=== PATIENT | male | born 1945 | race Caucasian/White ===

== ENCOUNTER → 2016-10-21 | Outpatient (CLI) | payer BC ==
[~2016-10-21] MED LIST: ASCA500 PO; ASPCH81X PO; ATOR-24 PO; B-COCAP2 PO; CAND1TAB17 PO; CINN1CAP2 PO; CLOP1TAB15 PO; DILT-119 PO; MULT-506 PO; NTRGSL/4 UT; OMEG10007 PO; PRLSR20 PO; SPRIN/30 INH; VITA400C15 PO; VTMD1000 PO
[2016-10-21 12:16] LABS: BASO % 0.4 %; BASO ABS # 0.03 K/uL (0-0.2); COMPLETE YES; HEMATOCRIT 42.4 % (42-52); IG% 0.1 %; LYMPH % 24.1 %; LYMPH ABS # 1.65 K/uL (1.2-3.4); MEAN CELL VOLUME 86.5 fL (80-100); MEAN CORPUSCULAR HEMOGLOBIN 29.6 pg (25-34); MEAN CORPUSCULAR HGB CONC 34.2 g/dl (32-36); MEAN PLATELET VOLUME 10.6 fL (7.4-10.4); MONO % 12.4 %; PLATELET COUNT 210 K/uL (130-400); WHITE BLOOD COUNT 6.85 K/uL (4.8-10.8)
[2016-10-21 12:56] LABS: ALT/SGPT 34 U/L (12-78); AST/SGOT 22 U/L (15-37); BLOOD UREA NITROGEN 18 mg/dl (7-18); BUN/CREATININE RATIO 18.5 (10-20); CALCIUM 8.8 mg/dl (8.5-10.1); CARBON DIOXIDE 27 mmol/L (21-32); CHLORIDE 109 mmol/L (98-107); CREATININE 0.95 mg/dl (0.60-1.40); GLUCOSE 118 mg/dl (70-99); MAGNESIUM 2.1 mg/dl (1.8-2.4); SODIUM 143 mmol/L (136-145)
[2016-10-21 12:58] LABS: ALB/GLOB RATIO 1.1 (0.9-2); ALKALINE PHOSPHATASE 83 U/L (45-117)
== END | disposition home or self-care (01) ==
LOC: C.LABPVFM 08:30
PROVIDERS: ATTEND Family Medicine
DX: K21.0 Gastro-esophageal reflux disease with esophagitis (principal); E78.5 Hyperlipidemia, unspecified; J43.9 Emphysema, unspecified; I25.10 Atherosclerotic heart disease of native coronary artery without angina pectoris

== ENCOUNTER → 2017-04-02 | Outpatient (CLI) | payer BC ==
[2017-04-02 13:16] LABS: BLOOD UREA NITROGEN 22 mg/dl (7-18); CREATININE 0.98 mg/dl (0.60-1.40)
[2017-04-02 13:19] LABS: CHOLESTEROL/HDL RATIO 3.2
[2017-04-02 13:20] LABS: PROSTATE SPECIFIC ANTIGEN 0.148 ng/ml (0.000-4.000)
[2017-04-02 13:32] LABS: ESTIMATED AVERAGE GLUCOSE 117 mg/dl; HA1C FLAG Normal (Normal)
== END | disposition home or self-care (01) ==
LOC: C.LABPVFM 08:12
PROVIDERS: ATTEND Family Medicine
DX: K21.0 Gastro-esophageal reflux disease with esophagitis (principal); E78.5 Hyperlipidemia, unspecified; R73.01 Impaired fasting glucose; J43.9 Emphysema, unspecified; I25.10 Atherosclerotic heart disease of native coronary artery without angina pectoris; N40.0 Benign prostatic hyperplasia without lower urinary tract symptoms; Z12.5 Encounter for screening for malignant neoplasm of prostate; N41.9 Inflammatory disease of prostate, unspecified; N39.0 Urinary tract infection, site not specified

== ENCOUNTER → 2017-07-21 | Outpatient (CLI) | payer BC ==
--- NOTE | 2017-07-21 15:03 | DIAGNOSTIC IMAGING REPORT ---
KUB CLINICAL HISTORY: 71 years-old Male presenting with Abdominal pain, RUQ (right upper quadrant). TECHNIQUE: Single supine view of the abdomen was obtained. COMPARISON: CT from 02/21/2016. FINDINGS: Moderate stool burden in the right and transverse colon. No bowel obstruction. No gross pneumoperitoneum allowing for supine technique. Allowing for bowel gas and stool, no calcifications to suggest nephrolithiasis. Osseous structures normal. Lung bases clear. IMPRESSION: 1. Moderate stool burden suggest constipation. No bowel obstruction or gross free air. Electronically signed by: Kris Conner M.D. 07/21/2017 3:01 PM Dictated Date/Time: 07/21/2017 3:00 PM
--- NOTE | 2017-07-21 15:03 | DIAGNOSTIC IMAGING REPORT ---
RIBS UNILATERAL WITH PA CHEST CLINICAL HISTORY: Rib pain on right side trauma. Pain. COMPARISON STUDY: None FINDINGS: Nondisplaced cortical fracture anterior margin right eighth rib. All remaining ribs are unremarkable. Lungs are considered clear. The PA projection suggests a potential nodular density right midlung but this is not seen in the additional images raise the possibly of overlap artifact. IMPRESSION: Nondisplaced cortical fracture right eighth rib. Potential nodular density inferior right chest versus overlap artifact. Although exclusively seen on a single projection, it is felt that a prudent approach would be a repeat PA and lateral chest film with oblique projections or CT of the chest as follow-up. The above report was generated using voice recognition software. It may contain grammatical, syntax or spelling errors. Electronically signed by: Fer Dominguez M.D. 07/21/2017 3:01 PM Dictated Date/Time: 07/21/2017 2:58 PM
== END | disposition home or self-care (01) ==
LOC: C.RADPV 14:36
PROVIDERS: ATTEND Family Medicine
DX: R07.81 Pleurodynia (principal); R10.11 Right upper quadrant pain

== ENCOUNTER → 2017-08-12 | Outpatient (CLI) | payer BC ==
--- NOTE | 2017-08-12 15:04 | DIAGNOSTIC IMAGING REPORT ---
CHEST-PA,LAT AND OBLIQUE VIEWS HISTORY: 71 years-old Male ABDONINAL PAIN acute generalized abdominal pain. Follow-up study to assess nodular density of the inferior right chest seen on comparison study. COMPARISON: Chest radiograph 07/21/2017, CT 02/21/2016 TECHNIQUE: PA view of the chest with lateral and oblique views FINDINGS: Cardiac silhouette is mildly enlarged, unchanged. No pneumothorax. Mild blunting of left costophrenic angle suggests trace effusion. No overt pulmonary edema. Subsegmental bibasilar opacities are noted, favoring atelectasis. There is a 2.5 x 1.9 cm opacity of the right lung base, which appears to be present within the right lower lobe accounting for the previously described nodular opacity seen on study dated 07/21/2017. The bones appear grossly intact. IMPRESSION: 1. 2.5 cm focal opacity of the right lung base, likely within the right lower lobe persists, suspicious for pulmonary nodule. Further evaluation with CT of the chest is recommended to exclude neoplasm. 2. Cardiomegaly without overt pulmonary edema. 3. Subsegmental bibasilar opacities suggest atelectasis. The above report was generated using voice recognition software. It may contain grammatical, syntax or spelling errors. Electronically signed by: Joni Ruth M.D. 08/12/2017 3:03 PM Dictated Date/Time: 08/12/2017 2:48 PM
== END | disposition home or self-care (01) ==
LOC: C.RADPV 14:04
PROVIDERS: ATTEND Family Medicine
DX: R10.11 Right upper quadrant pain (principal); N40.0 Benign prostatic hyperplasia without lower urinary tract symptoms; E78.5 Hyperlipidemia, unspecified; J43.9 Emphysema, unspecified; I25.10 Atherosclerotic heart disease of native coronary artery without angina pectoris; R00.0 Tachycardia, unspecified; I51.7 Cardiomegaly

== ENCOUNTER → 2017-08-19 | Outpatient (CLI) | payer BC ==
--- NOTE | 2017-08-19 10:51 | DIAGNOSTIC IMAGING REPORT ---
(CHEST) THORAX WITHOUT CLINICAL HISTORY: R91.1 Pulmonary nodule COMPARISON STUDY: Chest x-ray dated 08/12/2017, CT scan dated 08/28/2013 CT DOSE: 557.51 mGycm TECHNIQUE: CT of the thorax was performed from the thoracic inlet to the lung bases. Images are reviewed in the axial, sagittal, and coronal planes. IV contrast was not administered for this examination. A dose lowering technique was utilized adhering to the principles of ALARA. FINDINGS: Thyroid: Imaged portions of the thyroid gland are normal in appearance. Thoracic aorta: The thoracic aorta is normal in course and caliber, noting standard 3 vessel arch anatomy. Heart: There are moderate coronary artery calcifications Lungs and pleural spaces: There is pulmonary emphysema. There is stable biapical pleural and parenchymal scarring. There is a new lobulated irregularly marginated 19 mm right lower lobe pulmonary nodule suspicious for neoplasm. Also evident is a 4 mm pleural-based right lower lobe pulmonary nodule Mediastinum: There is mild mediastinal lymphadenopathy, similar to the prior study. The largest lymph node is an 11 mm in short axis subcarinal node. Concha: There is no evidence of pathologic adenopathy given the limitations of a noncontrast study. Axilla: Shotty bilateral axillary lymph nodes are present. None are pathologically enlarged by size criteria Upper abdomen: Partially visualized upper abdominal viscera is within normal limits. Skeletal structures: There are no lytic or blastic osseous lesions. IMPRESSION: 1. Interval development of an irregularly marginated 19 x 11 mm right lower lobe pulmonary nodule. This should be presumed neoplastic unless proven otherwise 2. There is an additional 4 mm pleural-based right lower lobe pulmonary nodule 3. Emphysema 4. No pleural effusions 5. Mild mediastinal lymphadenopathy similar to the prior 2013 study Electronically signed by: Rene Wallace M.D. 08/19/2017 10:49 AM Dictated Date/Time: 08/19/2017 10:36 AM
== END | disposition home or self-care (01) ==
LOC: C.CTS 09:50
PROVIDERS: ATTEND Family Medicine
DX: R91.8 Other nonspecific abnormal finding of lung field (principal); J43.9 Emphysema, unspecified